=== PATIENT | male | born 1940 | race Caucasian/White ===

== ENCOUNTER 2016-08-28 09:00 | Outpatient (CLI) | payer MEDICARE, OTHER | END 2016-08-28 09:01 | disposition home or self-care (01) | DX: I10 Essential (primary) hypertension (principal); E78.00 Pure hypercholesterolemia, unspecified; E55.9 Vitamin D deficiency, unspecified; Z12.5 Encounter for screening for malignant neoplasm of prostate; E03.9 Hypothyroidism, unspecified | CPT/HCPCS: 36415; 80053; 80061; 82306; 84443; G0103 ==

== ENCOUNTER 2016-11-01 16:12 | Outpatient (CLI) | payer MEDICARE, OTHER ==
--- NOTE | 2016-11-03 13:58 | CT Report ---
EXAM: CT LUMBAR SPINE WITHOUT CONTRAST EXAM DATE: 11/01/2016 05:08 PM. CLINICAL HISTORY: Chronic lumbar pain and stenosis. COMPARISONS: Lumbar spine plain films 12/18/2015. TECHNIQUE: Thin-section axial images were acquired of the lumbar spine from T12 to S1 without contras t. Post-processing: Coronal and sagittal reformats. Other: None. In accordance with CT protocol optimization, one or more of the following dose reduction techniques w ere utilized for this exam: automated exposure control, adjustment of mA and/or KV based on patient s ize, or use of iterative reconstructive technique. FINDINGS: Alignment: Minimal levorotatory curvature of the lumbar spine is seen. Mild, 3 mm, retrolisthesis is seen at L1-L2. Minimal, 2 mm, retrolisthesis is seen at L2-L3. Bones: Five [id number]-[id number] lumbar vertebral bodies are present. No fractures or bone lesions. Disk Levels/Facets: T12-L1: Unremarkable. L1-L2: Mild retrolisthesis. Minimal circumferential disk bulge is seen. Effacement of the thecal sac is noted. Mild central canal stenosis. L2-L3: Minimal retrolisthesis. Minimal circumferential disk bulge. No stenosis. L3-L4: Mild degenerative facet change. Minimal loss of disk space height. Minimal circumferential dis k bulge. Effacement of the thecal sac. Mild canal stenosis. L4-L5: Moderate hypertrophic and erosive degenerative facet change is seen. Minimal circumferential d isk bulge is noted. Effacement of the thecal sac is noted. Moderate canal stenosis. L5-S1: Mild degenerative facet change. Moderate loss of disk space height. Vacuum cleft phenomenon. M ild circumferential disk bulge is seen. Patchy anterior and lateral osteophyte formation is seen. No stenosis. Musculature: Normal. No fatty atrophy. Other: Mild vascular calcification is seen involving aorta and iliac arteries. IMPRESSION: 1. Mild spondylosis throughout the lumbar spine, as noted above. 2. L1-L2: Mild spondylotic retrolisthesis. Mild canal stenosis. 3. L3-L4: Mild degenerative disk and facet change. Mild canal stenosis. 4. L4-L5: Moderate hypertrophic degenerative facet change. Mild degenerative disk change. Moderate ca nal stenosis. [facility] Referring Provider Line: [phone] SITE ID: [id number]
== END 2016-11-01 16:13 | disposition home or self-care (01) ==
LOC: DI 16:12
PROVIDERS: ATTEND Orthopaedic Surgery
DX: M47.896 Other spondylosis, lumbar region (principal); M51.36 Other intervertebral disc degeneration, lumbar region; M43.16 Spondylolisthesis, lumbar region
CPT/HCPCS: 72131

== ENCOUNTER 2016-11-26 09:55 | Day surgery (SDC) | payer MEDICARE, OTHER ==
[2016-11-26] MEDS ORDERED: LACTATED RINGERS 1,000 ML IV ONE (10:24)
[2016-11-26] MEDS ORDERED: BUPIVACAINE 0.25% PF 30 ML VIAL SUBQ ONE ×2 (10:43)
[2016-11-26] MEDS ORDERED: LIDOCAINE 1%-EPI 1:100000 30 ML MDV SUBQ ONE ×2 (10:43)
[2016-11-26] MEDS ORDERED: LIDOCAINE-MPF 2% 5 ML VIAL IM ONE (11:00)
[2016-11-26] MEDS ORDERED: PROPOFOL 200 MG/20 ML VIAL IVP ONE (11:00)
[2016-11-26] MEDS ORDERED: MIDAZOLAM 2 MG/2 ML VIAL IVP ONE (11:00)
[2016-11-26] MEDS ORDERED: fentaNYL 100 MCG/2 ML VIAL IVP ONE (11:00)
[2016-11-26 12:02] VITALS: BP 115/68
--- NOTE | 2016-11-28 12:41 | OPERATIVE REPORT ---
DATE OF SURGERY: 11/26/2016 00:00:00 PREOPERATIVE DIAGNOSIS: Left carpal tunnel syndrome. POSTOPERATIVE DIAGNOSIS: Left carpal tunnel syndrome. NAME OF PROCEDURE: Left carpal tunnel release. SURGEON: Kortney Middleton MD ANESTHESIA: Local MAC, Jeffry Pandya. INDICATIONS FOR SURGERY: The patient is a 76-year-old male with progressive carpal tunnel syndrome sy mptoms in his left hand with failure to respond to conservative treatment, and recommendation made fo r carpal tunnel release. DESCRIPTION OF PROCEDURE: Patient was taken to the operating room, he was given a light sedative IV a nd after an adequate surgical timeout and prep and drape, he was given a carpal tunnel block utilizin g 5 mL of 1% lidocaine and 4 mL of 0.25% Marcaine with epi. After an approximately 5 minute delay to allow epi effect, the patient's carpal tunnel release was performed through a longitudinal incision i n the palm approximately 1 inch in length, in line with the third web. This was taken through skin an d subcutaneous tissue, defining the extent of the carpal tunnel and the transverse carpal ligament wa s divided. This release carried distal to the level of the transverse superficial arch, and it was ca rried proximal to the distal wrist flexion crease. This adequately decompressed a carpal tunnel that was very tight, but did not show any other abnormality. The area was irrigated and closed with 4-0 ny shira interrupted. Sterile dressings were applied. The patient was placed in a soft dressing and taken to the recovery room in stable condition. ESTIMATED BLOOD LOSS: Minimal. COMPLICATIONS: None. SPONGE AND NEEDLE COUNTS: Correct. JOB #: [id number] EXT JOB #:[id number]
== END 2016-11-26 09:56 | disposition home or self-care (01) ==
LOC: SDS 09:55
PROVIDERS: ATTEND Orthopaedic Surgery
PROC: 01N50ZZ Release Median Nerve, Open Approach (ICD-10-PCS; principal; 2016-11-26 11:00)
DX: G56.02 Carpal tunnel syndrome, left upper limb (principal); M51.36 Other intervertebral disc degeneration, lumbar region; M48.06 Spinal stenosis, lumbar region; E03.9 Hypothyroidism, unspecified; R12 Heartburn; Z95.0 Presence of cardiac pacemaker; Z87.891 Personal history of nicotine dependence; Z79.82 Long term (current) use of aspirin
CPT/HCPCS: 64721; J7120

== ENCOUNTER 2017-05-14 14:48 | Outpatient (CLI) | payer MEDICARE, OTHER ==
--- NOTE | 2017-05-15 11:51 | XRAY Report ---
DATE OF SERVICE: 05/14/2017 LEFT FOOT: 05/14/2017 COMPARISON: None. INDICATION: Pain and edema subjacent to the second metatarsal, left foot. TECHNIQUE: Three views of the left foot. FINDINGS: There is mild osteoarthritis of the first metatarsophalangeal joint. Normal alignment. No evidence of acute fracture. No gross soft tissue abnormality, apart from bunion. IMPRESSION: BUNION AND MILD 1ST MTP OSTEOARTHRITIS. NO ACUTE FINDINGS. TD: 05/14/2017 18:18 MTDD
== END 2017-05-14 14:49 | disposition home or self-care (01) ==
LOC: DI 14:48
PROVIDERS: ATTEND Podiatrist
DX: M19.072 Primary osteoarthritis, left ankle and foot (principal); M21.612 Bunion of left foot

== ENCOUNTER 2017-06-10 15:30 | Outpatient (CLI) | payer MEDICARE, OTHER | END 2017-06-10 15:31 | disposition home or self-care (01) | LOC: LAB.R 15:30 | PROVIDERS: ATTEND Family Medicine | DX: Z00.00 Encounter for general adult medical examination without abnormal findings (principal) | CPT/HCPCS: 87640 ==

== ENCOUNTER 2017-06-11 07:55 | Outpatient (CLI) | payer MEDICARE, OTHER ==
[2017-06-11 13:20] LABS: BASOPHILS # (AUTO) 0.1 10^3/uL (0.0-0.1); BASOPHILS % (AUTO) 1.2 %; EOSINOPHILS # (AUTO) 0.2 10^3/uL (0.0-0.7); EOSINOPHILS % (AUTO) 3.5 %; HGB - HEMOGLOBIN 11.9 g/dL (14.0-18.0); LYMPHOCYTES # (AUTO) 0.9 10^3/uL (1.5-3.5); LYMPHOCYTES % (AUTO) 16.2 %; MEAN CORPUSCULAR HEMOGLOBIN 32.6 pg (27.0-31.0); MEAN CORPUSCULAR VOLUME 90.4 fL (80.0-94.0); MEAN PLATELET VOLUME 7.4 fL (7.4-11.4); MONOCYTES # (AUTO) 0.4 10^3/uL (0.0-1.0); MONOCYTES % (AUTO) 6.6 %; NEUTROPHILS % (AUTO) 72.5 %; PLT - PLATELET COUNT 184 10^3/uL (130-450); RED BLOOD COUNT 3.65 10^6/uL (4.70-6.10); RED CELL DISTRIBUTION WIDTH 13.7 % (12.0-15.0); WHITE BLOOD COUNT 5.5 x10^3/uL (4.8-10.8)
[2017-06-11 13:32] LABS: ALBUMIN 4.3 g/dL (3.2-5.5); ALBUMIN/GLOBULIN RATIO 1.5 (1.0-2.2); BILIRUBIN,TOTAL 0.4 mg/dL (0.2-1.0); CALCIUM 9.3 mg/dL (8.5-10.3); CREATININE 1.3 mg/dL (0.6-1.2); TOTAL PROTEIN 7.2 g/dL (6.7-8.2)
== END 2017-06-11 07:56 | disposition home or self-care (01) ==
LOC: LAB.WCP 07:55
PROVIDERS: ATTEND Family Medicine
DX: Z00.00 Encounter for general adult medical examination without abnormal findings (principal); E78.5 Hyperlipidemia, unspecified; I10 Essential (primary) hypertension; E55.9 Vitamin D deficiency, unspecified; E03.9 Hypothyroidism, unspecified
CPT/HCPCS: 36415; 80053; 82306; 84443; 85025

== ENCOUNTER 2017-06-12 10:46 | Outpatient (CLI) | payer MEDICARE, OTHER ==
[2017-06-12 18:54] LABS: BASOPHILS # (AUTO) 0.1 10^3/uL (0.0-0.1); EOSINOPHILS # (AUTO) 0.2 10^3/uL (0.0-0.7); EOSINOPHILS % (AUTO) 2.9 %; HGB - HEMOGLOBIN 11.6 g/dL (14.0-18.0); LYMPHOCYTES # (AUTO) 0.9 10^3/uL (1.5-3.5); MEAN CORPUSCULAR HEMOGLOBIN 31.8 pg (27.0-31.0); MEAN CORPUSCULAR HGB CONC 33.6 g/dL (32.0-36.0); MEAN CORPUSCULAR VOLUME 94.7 fL (80.0-94.0); MEAN PLATELET VOLUME 7.9 fL (7.4-11.4); MONOCYTES # (AUTO) 0.4 10^3/uL (0.0-1.0); MONOCYTES % (AUTO) 7.1 %; NEUTROPHILS # (AUTO) 4.1 10^3/uL (1.5-6.6); PLT - PLATELET COUNT 204 10^3/uL (130-450); RED BLOOD COUNT 3.64 10^6/uL (4.70-6.10); RED CELL DISTRIBUTION WIDTH 13.9 % (12.0-15.0); WHITE BLOOD COUNT 5.6 x10^3/uL (4.8-10.8)
[2017-06-12 20:00] LABS: % IRON SATURATION 15 % (20-50); IRON 63 ug/dL (45-182); TOTAL IRON BINDING CAPACITY 409 ug/dL (250-450); TRANSFERRIN 292 mg/dL (180-329)
[2017-06-12 20:29] LABS: FERRITIN 13.1 ng/mL (23.9-336.2)
== END 2017-06-12 10:47 | disposition home or self-care (01) ==
LOC: LAB.WCP 10:46
PROVIDERS: ATTEND Family Medicine
DX: D64.9 Anemia, unspecified (principal)
CPT/HCPCS: 36415; 82607; 82728; 83540; 84466; 85025

== ENCOUNTER 2017-07-07 10:16 | Outpatient (CLI) | payer MEDICARE, OTHER | END 2017-07-07 10:17 | disposition home or self-care (01) | LOC: LAB 10:16 | PROVIDERS: ATTEND Orthopaedic Surgery | DX: Z01.812 Encounter for preprocedural laboratory examination (principal); M17.11 Unilateral primary osteoarthritis, right knee | CPT/HCPCS: 36415; 86850; 86900; 86901 ==

== ENCOUNTER 2017-07-08 02:30 | Inpatient (IN) | payer MEDICARE, OTHER ==
[2017-07-08] MEDS ORDERED: ceFAZolin 2 GM/50 ML 2 GM/50 ML BAG IV ONE (06:31)
[2017-07-08] MEDS ORDERED: CELECOXIB 100 MG CAPSULE PO ONE (06:32)
[2017-07-08] MEDS ORDERED: ACETAMINOPHEN 1,000 MG/100 ML 100 ML IV ONE ×2 (06:34→09:01)
[2017-07-08] MEDS ORDERED: ROPIVACAINE 0.5% PF 20 ML AMPULE ONE (07:05)
[2017-07-08] MEDS ORDERED: LACTATED RINGERS 1,000 ML IV ONE ×2 (07:07→08:35)
[2017-07-08] MEDS ORDERED: KETOROLAC 30 MG/ML VIAL IVP ONE (08:15)
[2017-07-08] MEDS ORDERED: MORPHINE PF 10 MG/10 ML AMP SUBQ ONE (08:15)
[2017-07-08] MEDS ORDERED: EPINEPHrine 1 MG/ML AMP IVP ONE (08:15)
[2017-07-08] MEDS ORDERED: ROPIVACAINE 0.5% PF 20 ML AMPULE SUBQ ONE (08:15)
[2017-07-08] MEDS ORDERED: PROPOFOL 200 MG/20 ML VIAL IVP ONE (09:01)
[2017-07-08] MEDS ORDERED: ePHEDrine 50 MG/ML VIAL IVP ONE (09:01)
[2017-07-08] MEDS ORDERED: TRANEXAMIC ACID 1,000 MG/10 ML VIAL IV ONE (09:01)
[2017-07-08] MEDS ORDERED: GLYCOPYRROLATE 1 MG/5 ML VIAL IVP ONE (09:01)
[2017-07-08] MEDS ORDERED: MORPHINE PF 5 MG/10 ML AMP EP ONE (09:01)
--- NOTE | 2017-07-08 09:55 | OPERATIVE REPORT ---
Operative Report - General Admit Date: 07/08/17 Procedure Date: 07/08/17 Planned Procedure: right Total knee arthroplasty Pre-Op Diagnosis: DJD right knee Procedure Performed: Right TKA Post Op Diagnosis: same - Procedure Note Primary Surgeon: melissa Anesthesia Provider: Anesthesia Technique: Combo spinal/epidural Estimated Blood Loss (mL): 150
[2017-07-08] MEDS ORDERED: ACETAMINOPHEN 325 MG TABLET PO PRN (09:56)
[2017-07-08] MEDS ORDERED: SODIUM CHLORIDE FLUSH 0.9% 10 ML SYRINGE IVP PRN (09:56)
[2017-07-08] MEDS ORDERED: PROCHLORPERAZINE 10 MG/2 ML VIAL IVP PRN (09:56)
[2017-07-08] MEDS ORDERED: ACETAMINOPHEN 1,000 MG/100 ML 100 ML IV PRN (09:56)
[2017-07-08] MEDS ORDERED: BISACODYL 10 MG SUPP PR PRN (09:56)
--- NOTE | 2017-07-08 10:58 | OPERATIVE REPORT ---
DATE OF SERVICE: Physician: Kortney Middleton MD DATE OF PROCEDURE: 07/08/2017 PREOPERATIVE DIAGNOSIS: Right knee osteoarthritis. POSTOPERATIVE DIAGNOSIS: Right knee osteoarthritis. PROCEDURE PERFORMED: Right total knee replacement arthroplasty. OPERATING SURGEON: Kortney Middleton MD ANESTHESIA: Spinal. INDICATIONS FOR SURGERY: The patient is a 76-year-old male with progressive severe osteoarthritis of his knee who desires surgical treatment with total knee arthroplasty. The patient has failed nonoperative care and has significant functional limitations and pain. FINDINGS AT SURGERY: The patient's evaluation under anesthesia revealed the patient to have range of motion 0-110 with crepitus about the knee and effusion, but normal ligament stability. At open arthrotomy, the patient had significant pale and clear yellow synovial fluid. He had significant and severe osteoarthritis changes with [id number] articulation in the medial aspect of the patellofemoral joint and the lateral aspect, preserved articular cartilage in the lateral compartment of the knee, but more severely worn medial. The patient had a very large loose body in the posteromedial part of the knee adherent somewhat in the synovium posterior to the tibial plateau. DESCRIPTION OF OPERATIVE PROCEDURE: The patient was taken to the operating room. He was given a spinal anesthetic. He was then positioned supine. He was given IV antibiotics and tranexamic acid injections. A tourniquet was placed on his thigh and a Cole catheter placed. He was sterilely prepped and draped in standard fashion. After surgical timeout, the patient's limb was exsanguinated and the tourniquet inflated to 300 mmHg. A marking pen was used to plan a curved medial incision approximately 8 inches in length, which was then made through skin and through subcutaneous tissue down to the extensor expansion and the medial retinaculum incision was continued through the medial retinaculum, exposing the intraarticular aspect of the knee, using a suction to remove the large amount of effusion. The patient's patella was able to be everted and displaced laterally. The knee was then flexed. In flexion, a rongeur was used to remove osteophytes from around the distal femur and around the patella. A #15 blade knife and pickups were used to excise the menisci, medial and lateral, and to excise the remnants of the anterior cruciate ligament. Initially, the PCL left intact. The distal femur drill was used into the medullary canal, after which, the distal femoral cutting block was applied and the distal femoral cut made with a saw. Sizing was initially to a size 10, and initial application of the cutting block suggested that this would not be an adequate resection and that downsizing was undertaken, repositioning the distal femur holes and then placing a 9 block and making all the 4-in-1 cuts on the femur and this was very adequate and properly sized for a standard size 9 femur. Excess bone and spurs were removed. Retractors were repositioned around the tibia with anterior subluxation of the tibia. The remaining medial and lateral menisci remnants were removed. The tibial external cutting jig was applied. Reference for rotation slope and alignment, and the cutting block applied to the tibia. The tibia was then cut in standard fashion and the tibial resection excised. This had somewhat destabilized the PCL so the PCL remnant was removed. The sizing of the femur occurred to a size F, and the block applied for drilling and broaching for a stem. With the femur then positioned and cycled through range of motion, the distal femoral drill holes were made and the trial reduction performed with sequential poly inserts up to size 16, which stabilized the knee, did not give extrusion, gave full range of motion. With these trial implants left in place, the patella was prepared by excision of an overall size of 20 down to 14, which allowed a replacement of a size 8 poly medialized 32 and this was prepared and adequately seated. The trial components were then all removed. The knee was flushed and irrigated and the implantables brought into the field. Injection was placed in and around the knee with local and Toradol medication, followed by sequential cementing of the tibial baseplate with insertion of 16 mm medial congruent poly followed by the size 9 femur and the size 32 patella. All excess cement was removed and the knee was flushed thoroughly as the cement hardened. Cycling of the knee was excellent with no patellar subluxation and excellent tracking. The knee was given a bath of dilute iodine solution, which was then irrigated and lavaged out of the knee at the conclusion followed by deflation of the tourniquet, cautery control of bleeding, and then a meticulous closure of the capsule with #2 FiberWire, a subcutaneous 0 and 2-0 Vicryl closure and a subcuticular 4-0 Monocryl closure. Sterile dressings were applied. The patient was placed in a soft wrap and taken to the recovery room in stable condition. ESTIMATED BLOOD LOSS: 150 mL. COMPLICATIONS: None. COUNTS: Sponge and needle counts were correct. TD: 07/08/2017 10:56
[2017-07-08] MEDS: SODIUM CHLORIDE 0.45% 1,000 ML IV SCH ×2 (11:01→20:29)
[2017-07-08] MEDS: HYDROmorphone 1 MG/ML SYRINGE IVP PRN ×2 (11:52→16:00)
--- NOTE | 2017-07-08 13:18 | XRAY Report ---
TWO VIEW RIGHT KNEE: 07/08/2017 CLINICAL INDICATION: Postop. FINDINGS: Frontal and lateral views of the right knee demonstrate a right knee replacement in place. Subcutaneous gas is seen. No fracture or hardware complication is appreciated. IMPRESSION: EXPECTED POSTOPERATIVE APPEARANCE OF RIGHT KNEE REPLACEMENT. TD: 07/08/2017 13:17
[2017-07-08] MEDS: ceFAZolin 2 GM/50 ML 2 GM/50 ML BAG IV SCH (16:07)
[2017-07-08] MEDS: SODIUM CHLORIDE FLUSH 0.9% 10 ML SYRINGE IVP SCH (16:09)
[2017-07-08] MEDS: oxyCOD/ACETAMIN 5 MG/325 MG TABLET PO PRN ×2 (17:16→20:29)
[2017-07-08] MEDS: PRAMIPEXOLE 0.25 MG TABLET PO SCH (17:51)
[2017-07-08] MEDS ORDERED: PRAMIPEXOLE 0.25 MG TABLET PO SCH (21:00)
[2017-07-09] MEDS: oxyCOD/ACETAMIN 5 MG/325 MG TABLET PO PRN ×4 (00:11→21:24)
[2017-07-09] MEDS: HYDROmorphone 1 MG/ML SYRINGE IVP PRN ×3 (00:12→16:33)
[2017-07-09] MEDS: ONDANSETRON 4 MG/2 ML VIAL IVP PRN ×2 (00:15→10:55)
[2017-07-09] MEDS: ceFAZolin 2 GM/50 ML 2 GM/50 ML BAG IV SCH (00:22)
[2017-07-09] MEDS: SODIUM CHLORIDE FLUSH 0.9% 10 ML SYRINGE IVP SCH ×3 (00:25→16:21)
[2017-07-09 05:54] LABS: BASOPHILS % (AUTO) 0.3 %; EOSINOPHILS # (AUTO) 0.1 10^3/uL (0.0-0.7); EOSINOPHILS % (AUTO) 1.4 %; HGB - HEMOGLOBIN 10.5 g/dL (14.0-18.0); LYMPHOCYTES # (AUTO) 0.6 10^3/uL (1.5-3.5); LYMPHOCYTES % (AUTO) 9.4 %; MEAN CORPUSCULAR HGB CONC 33.7 g/dL (32.0-36.0); MEAN CORPUSCULAR VOLUME 94.8 fL (80.0-94.0); MEAN PLATELET VOLUME 7.5 fL (7.4-11.4); MONOCYTES # (AUTO) 0.5 10^3/uL (0.0-1.0); MONOCYTES % (AUTO) 7.4 %; NEUTROPHILS # (AUTO) 5.1 10^3/uL (1.5-6.6); NEUTROPHILS % (AUTO) 81.5 %; PLT - PLATELET COUNT 172 10^3/uL (130-450); RED BLOOD COUNT 3.28 10^6/uL (4.70-6.10); RED CELL DISTRIBUTION WIDTH 15.3 % (12.0-15.0); WHITE BLOOD COUNT 6.2 x10^3/uL (4.8-10.8)
[2017-07-09 05:56] LABS: CALCIUM 8.7 mg/dL (8.5-10.3); CREATININE 1.5 mg/dL (0.6-1.2)
[2017-07-09] MEDS: LEVOTHYROXINE 25 MCG TABLET PO SCH (07:09)
[2017-07-09] MEDS: PANTOPRAZOLE 40 MG TABLET PO SCH (07:09)
[2017-07-09] MEDS: SODIUM CHLORIDE 0.45% 1,000 ML IV SCH (07:39)
[2017-07-09] MEDS: LOSARTAN 50 MG TABLET PO SCH (08:45)
[2017-07-09] MEDS: PRAMIPEXOLE 0.25 MG TABLET PO SCH ×2 (08:45→16:21)
[2017-07-09] MEDS: FELODIPINE ER 2.5 MG TABLET PO SCH (08:45)
[2017-07-09] MEDS: SERTRALINE 50 MG TABLET PO SCH (08:47)
--- NOTE | 2017-07-09 13:00 | PROVIDER PROGRESS NOTE ---
Subjective - General Admit Date: 07/08/17 Procedure Date: 07/08/17 Post Op Days: 1 Procedure Performed: right TKA - Review of Systems Wound/Incisions: positive: Healing well Musculoskeletal: positive: Joint pain Objective - Patient Data Reviewed Vital Signs: Yes Vital Signs: Vital Signs x48h Temp Pulse Resp BP Pulse Ox 07/09/17 12:41 36.8 C 60 20 110/88 H 96 07/09/17 07:35 36.9 C 54 L 18 126/66 100 Weight: Weight 07/07/17 07/08/17 07/09/17 23:59 23:59 23:59 Weight (kg) 90.2 kg Intake & Output: Intake and Output Totals x24h 07/07/17 07/08/17 07/09/17 23:59 23:59 23:59 Intake Total 6250.442 9820.000 Output Total 575 1750 Balance 1081.667 470.000 - Lab Results Lab Results: 07/09/17 05:28 07/09/17 05:28 Other Lab Results: Lab Results x24hrs 07/09/17 07/09/17 Range/Units 05:28 05:28 WBC 6.2 (4.8-10.8) x10^3/uL RBC 3.28 L (4.70-6.10) 10^6/uL Hgb 10.5 L (14.0-18.0) g/dL Hct 31.1 L (42.0-52.0) % MCV 94.8 H (80.0-94.0) fL MCH 32.0 H (27.0-31.0) pg MCHC 33.7 (32.0-36.0) g/dL RDW 15.3 H (12.0-15.0) % Plt Count 172 (130-450) 10^3/uL MPV 7.5 (7.4-11.4) fL Neut # 5.1 (1.5-6.6) 10^3/uL Lymph # 0.6 L (1.5-3.5) 10^3/uL [place] # 0.5 (0.0-1.0) 10^3/uL Eos # 0.1 (0.0-0.7) 10^3/uL Baso # 0.0 (0.0-0.1) 10^3/uL Absolute Nucleated RBC 0.00 x10^3/uL Nucleated RBC % 0.1 /100WBC Sodium 135 (135-145) mmol/L Potassium 4.7 (3.5-5.0) mmol/L Chloride 101 (101-111) mmol/L Carbon Dioxide 26 (21-32) mmol/L Anion Gap 8.0 (6-13) BUN 34 H (6-20) mg/dL Creatinine 1.5 H (0.6-1.2) mg/dL Estimated GFR (MDRD) 45 L (>89) Glucose 125 H (70-100) mg/dL Calcium 8.7 (8.5-10.3) mg/dL - Imaging Results Radiology Imaging: positive: EMP read indepedently - Current Medications Current Medications: Current Medications Generic Name Dose Route Start Last Admin Trade Name Freq PRN Reason Stop Dose Admin Felodipine 10 mg 07/09/17 09:00 07/09/17 08:45 Plendil PO 10 mg DAILY GEMMA Administration Hydromorphone HCl 0.5 mg 07/08/17 09:56 07/09/17 10:55 Dilaudid Inj Syringe IVP 0.5 mg Q2H PRN Administration PAIN Levothyroxine Sodium 50 mcg 07/09/17 07:00 07/09/17 07:09 Synthroid PO 50 mcg QDAC GEMMA Administration Losartan Potassium 100 mg 07/09/17 09:00 07/09/17 08:45 Cozaar PO 100 mg DAILY GEMMA Administration Ondansetron HCl 4 mg 07/08/17 09:56 07/09/17 00:15 Zofran Inj IVP 4 mg Q6HR PRN Administration Nausea / Vomiting Oxycodone/Acetaminophen 1 tab 07/08/17 09:56 07/09/17 07:13 Percocet 5 Mg/325 Mg PO 1 tab Q4HR PRN Administration PAIN Pantoprazole Sodium 40 mg 07/09/17 07:00 07/09/17 07:09 Protonix PO 40 mg QDAC GEMMA Administration Pramipexole Dihydrochloride 0.5 mg 07/09/17 08:00 07/09/17 08:45 Mirapex PO 0.5 mg QDBREAKFAST GEMMA Administration Pramipexole Dihydrochloride 1 mg 07/08/17 18:00 07/08/17 17:51 Mirapex PO 1 mg 1730 GEMMA Administration Sertraline HCl 50 mg 07/09/17 09:00 07/09/17 08:47 Zoloft PO 50 mg DAILY GEMMA Administration Sodium Chloride 10 ml 07/08/17 17:00 07/09/17 08:46 Normal Saline Flush 0.9% IVP Not Given 0100,0900,1700 GEMMA - Physical Exam Wound/Incisions: positive: Healing well General Appearance: positive: No acute distress Skin: positive: Warm Extremities: positive: Joint swelling Neurologic/Psychiatric: positive: Motor nml, Sensation nml, Mood/affect nml Impression/Plan - Problem List Problem List: POD #1: Pt is having more pain this AM.\ Hct is stable. rec continue PT and mobilization. start ASA.
[2017-07-09] MEDS: ASPIRIN EC 325 MG TABLET PO SCH ×2 (14:01→21:24)
[2017-07-09] MEDS: SENNA 8.6 MG TABLET PO PRN (17:16)
[2017-07-09] MEDS ORDERED: risperiDONE 1 MG TABLET PO ONE (19:54)
[2017-07-10] MEDS: oxyCOD/ACETAMIN 5 MG/325 MG TABLET PO PRN ×3 (02:18→11:09)
[2017-07-10] MEDS: SODIUM CHLORIDE FLUSH 0.9% 10 ML SYRINGE IVP SCH ×3 (02:19→19:08)
[2017-07-10] MEDS: LEVOTHYROXINE 25 MCG TABLET PO SCH (06:42)
[2017-07-10] MEDS: PANTOPRAZOLE 40 MG TABLET PO SCH (06:42)
--- NOTE | 2017-07-10 07:18 | PROVIDER PROGRESS NOTE ---
Subjective - General Admit Date: 07/08/17 Procedure Date: 07/08/17 Post Op Days: 2 Procedure Performed: right TKA - Review of Systems Wound/Incisions: positive: Healing well Musculoskeletal: positive: Joint pain Objective - Patient Data Reviewed Vital Signs: Yes Vital Signs: Vital Signs x48h Temp Pulse Resp BP Pulse Ox 07/10/17 02:39 37.5 C 58 L 16 138/66 H 97 Weight: Weight 07/08/17 07/09/17 07/10/17 23:59 23:59 23:59 Weight (kg) 90.2 kg Intake & Output: Intake and Output Totals x24h 07/08/17 07/09/17 07/10/17 23:59 23:59 23:59 Intake Total 3177.604 8869.000 Output Total 575 3725 1375 Balance 1081.667 195.000 -1375 - Lab Results Lab Results: 07/09/17 05:28 07/09/17 05:28 - Current Medications Current Medications: Current Medications Generic Name Dose Route Start Last Admin Trade Name Freq PRN Reason Stop Dose Admin Acetaminophen 650 - 975 mg 07/08/17 09:56 07/10/17 05:38 Tylenol PO 650 mg Q4HR PRN Administration PAIN Aspirin 325 mg 07/09/17 13:00 07/09/17 21:24 Ecotrin PO 325 mg BID GEMMA Administration Felodipine 10 mg 07/09/17 09:00 07/09/17 08:45 Plendil PO 10 mg DAILY GEMMA Administration Hydromorphone HCl 0.5 mg 07/08/17 09:56 07/09/17 16:33 Dilaudid Inj Syringe IVP 0.5 mg Q2H PRN Administration PAIN Levothyroxine Sodium 50 mcg 07/09/17 07:00 07/10/17 06:42 Synthroid PO 50 mcg QDAC GEMMA Administration Losartan Potassium 100 mg 07/09/17 09:00 07/09/17 08:45 Cozaar PO 100 mg DAILY GEMMA Administration Ondansetron HCl 4 mg 07/08/17 09:56 07/09/17 00:15 Zofran Inj IVP 4 mg Q6HR PRN Administration Nausea / Vomiting Oxycodone/Acetaminophen 1 tab 07/08/17 09:56 07/10/17 06:42 Percocet 5 Mg/325 Mg PO 1 tab Q4HR PRN Administration PAIN Pantoprazole Sodium 40 mg 07/09/17 07:00 07/10/17 06:42 Protonix PO 40 mg QDAC GEMMA Administration Pramipexole Dihydrochloride 0.5 mg 07/09/17 08:00 07/09/17 08:45 Mirapex PO 0.5 mg QDBREAKFAST GEMMA Administration Pramipexole Dihydrochloride 1 mg 07/08/17 18:00 07/09/17 16:21 Mirapex PO 1 mg 1730 GEMMA Administration Senna 17.2 mg 07/08/17 09:56 07/09/17 17:16 Senokot PO 17.2 mg Q12H PRN Administration Constipation Sertraline HCl 50 mg 07/09/17 09:00 07/09/17 08:47 Zoloft PO 50 mg DAILY GEMMA Administration Sodium Chloride 10 ml 07/08/17 17:00 07/10/17 02:19 Normal Saline Flush 0.9% IVP 10 ml 0100,0900,1700 GEMMA Administration - Physical Exam Wound/Incisions: positive: Dressing dry and intact General Appearance: positive: No acute distress Skin: positive: No rash, Warm, Dry Extremities: positive: Joint swelling Neurologic/Psychiatric: positive: Motor nml, Sensation nml, Mood/affect nml Impression/Plan - Problem List Problem List: POD #2. Pt is progressing in routine fashion. HE will again participate in PT and gain mobility dressing change and hct check in am prior to planned discharge.
[2017-07-10] MEDS: LOSARTAN 50 MG TABLET PO SCH (08:05)
[2017-07-10] MEDS: ASPIRIN EC 325 MG TABLET PO SCH ×2 (08:06→20:29)
[2017-07-10] MEDS: FELODIPINE ER 2.5 MG TABLET PO SCH (08:06)
[2017-07-10] MEDS: PRAMIPEXOLE 0.25 MG TABLET PO SCH ×2 (08:06→19:08)
[2017-07-10] MEDS: SERTRALINE 50 MG TABLET PO SCH (08:06)
[2017-07-10] MEDS: SENNA 8.6 MG TABLET PO PRN (14:55)
[2017-07-10] MEDS ORDERED: DOCUSATE SODIUM 250 MG CAPSULE PO SCH (15:00)
--- NOTE | 2017-07-10 16:58 | Discharge Plan ---
Discharge Plan Disposition: Home, Self Care Condition: Good Prescriptions: oxyCODONE/ACET 5/325 [Percocet 5 mg/325 mg] 1 tab PO Q4HR PRN #30 tablet PRN Reason: Pain Aspirin EC [Ecotrin] 325 mg PO BID #60 tablet Senna [Senokot] 17.2 mg PO Q12H PRN #20 tablet PRN Reason: Constipation Diet: Regular Activity Restrictions: Wt Bearing as Tolerated Shower Restrictions: Yes (wound covered) Driving Restrictions: Yes (no drive) Assistance Devices: Walker Weight Bearing: Full Weight No Smoking: If you smoke, Please STOP! Call for help. Follow-up with: William Juan MD [Primary Care Provider] - Kortney Middleton MD [Provider Admit Priv/Credential] -
[2017-07-11] MEDS: SODIUM CHLORIDE FLUSH 0.9% 10 ML SYRINGE IVP SCH ×2 (01:35→08:53)
[2017-07-11 06:02] LABS: BASOPHILS % (AUTO) 0.7 %; EOSINOPHILS # (AUTO) 0.1 10^3/uL (0.0-0.7); EOSINOPHILS % (AUTO) 2.2 %; HGB - HEMOGLOBIN 9.4 g/dL (14.0-18.0); LYMPHOCYTES # (AUTO) 0.8 10^3/uL (1.5-3.5); LYMPHOCYTES % (AUTO) 12.2 %; MEAN CORPUSCULAR HEMOGLOBIN 31.9 pg (27.0-31.0); MEAN CORPUSCULAR HGB CONC 34.2 g/dL (32.0-36.0); MEAN CORPUSCULAR VOLUME 93.3 fL (80.0-94.0); MEAN PLATELET VOLUME 7.5 fL (7.4-11.4); MONOCYTES # (AUTO) 0.5 10^3/uL (0.0-1.0); MONOCYTES % (AUTO) 7.5 %; NEUTROPHILS # (AUTO) 4.9 10^3/uL (1.5-6.6); NEUTROPHILS % (AUTO) 77.4 %; PLT - PLATELET COUNT 159 10^3/uL (130-450); RED BLOOD COUNT 2.93 10^6/uL (4.70-6.10); RED CELL DISTRIBUTION WIDTH 15.3 % (12.0-15.0); WHITE BLOOD COUNT 6.3 x10^3/uL (4.8-10.8)
[2017-07-11] MEDS: PANTOPRAZOLE 40 MG TABLET PO SCH (06:18)
[2017-07-11] MEDS: oxyCOD/ACETAMIN 5 MG/325 MG TABLET PO PRN (06:19)
[2017-07-11] MEDS: LEVOTHYROXINE 25 MCG TABLET PO SCH (06:19)
[2017-07-11] MEDS: FELODIPINE ER 2.5 MG TABLET PO SCH (08:51)
[2017-07-11] MEDS: PRAMIPEXOLE 0.25 MG TABLET PO SCH (08:51)
[2017-07-11] MEDS: SERTRALINE 50 MG TABLET PO SCH (08:52)
[2017-07-11] MEDS: ASPIRIN EC 325 MG TABLET PO SCH (08:52)
[2017-07-11] MEDS: LOSARTAN 50 MG TABLET PO SCH (08:52)
[2017-07-11 08:54] VITALS: BP 126/90
--- NOTE | 2017-07-16 13:11 | PROVIDER PROGRESS NOTE ---
Subjective - General Admit Date: 07/08/17 Procedure Date: 07/08/17 Post Op Days: 8 Procedure Performed: right TKA - Review of Systems Wound/Incisions: positive: Dressing dry and intact Musculoskeletal: positive: Joint pain Objective - Lab Results Lab Results: 07/11/17 05:51 07/09/17 05:28 Impression/Plan - Problem List Problem List: THIS Patient has an anticipated hospital stay of less than 96 Hours.
--- NOTE | 2017-07-22 20:18 | DISCHARGE SUMMARY ---
Physician: Kortney Middleton MD DATE OF ADMISSION: 07/08/2017 DATE OF DISCHARGE: 07/11/2017 ADMISSION DIAGNOSIS: Right knee osteoarthritis. OPERATIVE PROCEDURE: 07/08/2017, a right total knee replacement arthroplasty. REASON FOR ADMISSION: The patient is a 76-year-old male with progressive, severe osteoarthritis of his right knee who desires total knee arthroplasty. The patient has failed in-office nonoperative management of his knee over an extended period. The patient has functional limitations and chronic knee pain. The patient's history and physical exam are documented in his hospital record. HOSPITAL COURSE: The patient was admitted to the hospital and underwent surgery. In the postoperative period, he was placed on the medical/surgical floor receiving standard postoperative care for a right knee arthroplasty. The patient did well in the postoperative period. He had uneventful management of pain and was very responsive to early therapy, and mobilized out of bed with a walker and utilizing oral pain medication. On 07/11/2017, the patient was discharged to home in the care of his . He was ambulating with a walker. His wound was healing well. He had range of motion of approximately 0 degrees to 90 degrees. PLAN: At discharge was to follow up in the [facility] within a week. He was to use his medications as needed and to be on aspirin 325 mg b.i.d. for deep venous thrombosis prophylaxis. He was given care instructions post total knee arthroplasty. TD: 07/22/2017 20:17
== END 2017-07-11 10:40 | disposition home or self-care (01) | DRG 470 ==
LOC: MS2 06:12
PROVIDERS: ADMIT Orthopaedic Surgery; ATTEND Orthopaedic Surgery
PROC: 0SRC069 Replacement of Right Knee Joint with Oxidized Zirconium on Polyethylene Synthetic Substitute, Cemented, Open Approach (ICD-10-PCS; principal; 2017-07-08 07:30)
DX: M17.11 Unilateral primary osteoarthritis, right knee (principal); I10 Essential (primary) hypertension; E03.9 Hypothyroidism, unspecified; K21.9 Gastro-esophageal reflux disease without esophagitis; G47.30 Sleep apnea, unspecified; E78.5 Hyperlipidemia, unspecified; F32.9 Major depressive disorder, single episode, unspecified; Z79.82 Long term (current) use of aspirin; Z79.899 Other long term (current) drug therapy; Z87.891 Personal history of nicotine dependence
CPT/HCPCS: 36415; 80048; 85014; 85018; 85025

== ENCOUNTER 2017-08-28 12:19 | Outpatient (CLI) | payer MEDICARE, OTHER ==
[2017-08-28 12:43] LABS: BASOPHILS # (AUTO) 0.1 10^3/uL (0.0-0.1); BASOPHILS % (AUTO) 0.8 %; EOSINOPHILS # (AUTO) 0.2 10^3/uL (0.0-0.7); EOSINOPHILS % (AUTO) 2.9 %; HGB - HEMOGLOBIN 12.6 g/dL (14.0-18.0); LYMPHOCYTES # (AUTO) 1.1 10^3/uL (1.5-3.5); LYMPHOCYTES % (AUTO) 13.9 %; MEAN CORPUSCULAR HEMOGLOBIN 32.9 pg (27.0-31.0); MEAN CORPUSCULAR HGB CONC 35.5 g/dL (32.0-36.0); MEAN CORPUSCULAR VOLUME 92.7 fL (80.0-94.0); MEAN PLATELET VOLUME 7.3 fL (7.4-11.4); MONOCYTES # (AUTO) 0.5 10^3/uL (0.0-1.0); MONOCYTES % (AUTO) 6.3 %; NEUTROPHILS # (AUTO) 5.8 10^3/uL (1.5-6.6); NEUTROPHILS % (AUTO) 76.1 %; PLT - PLATELET COUNT 217 10^3/uL (130-450); RED BLOOD COUNT 3.82 10^6/uL (4.70-6.10); RED CELL DISTRIBUTION WIDTH 15.6 % (12.0-15.0); WHITE BLOOD COUNT 7.7 x10^3/uL (4.8-10.8)
[2017-08-28 13:03] LABS: ALBUMIN 4.3 g/dL (3.2-5.5); ALBUMIN/GLOBULIN RATIO 1.5 (1.0-2.2); BILIRUBIN,TOTAL 0.7 mg/dL (0.2-1.0); CALCIUM 9.5 mg/dL (8.5-10.3); CREATININE 1.2 mg/dL (0.6-1.2); TOTAL PROTEIN 7.1 g/dL (6.7-8.2)
== END 2017-08-28 12:20 | disposition home or self-care (01) ==
LOC: LAB 12:19
PROVIDERS: ATTEND Family Medicine
DX: R10.9 Unspecified abdominal pain (principal); D64.9 Anemia, unspecified
CPT/HCPCS: 36415; 80053; 82728; 83540; 84466; 85025

== ENCOUNTER 2017-09-12 07:16 | Outpatient (CLI) | payer MEDICARE, OTHER ==
--- NOTE | 2017-09-12 12:31 | Ultrasound Report ---
ABDOMINAL ULTRASOUND: 09/12/2017 CLINICAL INDICATION: Pain. TECHNIQUE: Real-time scanning was performed with insurance claim representative static images obtained. FINDINGS: The liver measures 15 cm. A 9 mm cyst is incidentally noted. Otherwise, hepatic echotexture is normal. No intrahepatic biliary dilatation is seen. The common bile duct measures 4 mm. The gallbladder is normal, as is the pancreas. The kidneys are normal, with the right measuring 10.5 cm, and the left measuring 12.1 cm. The spleen measures 11.1 cm, and demonstrates normal echotexture. The abdominal aorta is normal in caliber. The inferior vena cava is unremarkable. No free fluid is present. IMPRESSION: INCIDENTAL HEPATIC CYST, STABLE FROM 02/03/2014. NO EVIDENCE OF CHOLELITHIASIS OR BILIARY DILATATION. TD: 09/12/2017 12:31
== END 2017-09-12 07:17 | disposition home or self-care (01) ==
LOC: DI 07:16
PROVIDERS: ATTEND Family Medicine
DX: R10.9 Unspecified abdominal pain (principal); K76.89 Other specified diseases of liver
CPT/HCPCS: 76700

== ENCOUNTER 2017-12-02 10:26 | Outpatient (CLI) | payer MEDICARE, OTHER | END 2017-12-02 10:27 | disposition home or self-care (01) | LOC: SC 10:26 | PROVIDERS: ATTEND Internal Medicine Pulmonary Disease | DX: G47.33 Obstructive sleep apnea (adult) (pediatric) (principal); I10 Essential (primary) hypertension; G25.81 Restless legs syndrome; G47.61 Periodic limb movement disorder | CPT/HCPCS: 99203; G0463; 99212 ==

== ENCOUNTER 2017-12-30 10:28 | Outpatient (CLI) | payer MEDICARE, OTHER ==
[2017-12-30 12:10] LABS: BASOPHILS # (AUTO) 0.1 10^3/uL (0.0-0.1); BASOPHILS % (AUTO) 0.8 %; EOSINOPHILS # (AUTO) 0.3 10^3/uL (0.0-0.7); EOSINOPHILS % (AUTO) 4.1 %; HGB - HEMOGLOBIN 13.9 g/dL (14.0-18.0); LYMPHOCYTES % (AUTO) 14.5 %; MEAN CORPUSCULAR HEMOGLOBIN 34.3 pg (27.0-31.0); MEAN CORPUSCULAR HGB CONC 35.9 g/dL (32.0-36.0); MEAN CORPUSCULAR VOLUME 95.5 fL (80.0-94.0); MEAN PLATELET VOLUME 7.8 fL (7.4-11.4); MONOCYTES # (AUTO) 0.5 10^3/uL (0.0-1.0); NEUTROPHILS # (AUTO) 4.9 10^3/uL (1.5-6.6); NEUTROPHILS % (AUTO) 73.6 %; PLT - PLATELET COUNT 205 10^3/uL (130-450); RED BLOOD COUNT 4.04 10^6/uL (4.70-6.10); RED CELL DISTRIBUTION WIDTH 14.6 % (12.0-15.0); WHITE BLOOD COUNT 6.6 x10^3/uL (4.8-10.8)
[2017-12-30 12:34] LABS: ALBUMIN 4.2 g/dL (3.2-5.5); ALBUMIN/GLOBULIN RATIO 1.5 (1.0-2.2); BILIRUBIN,TOTAL 0.8 mg/dL (0.2-1.0); CALCIUM 9.5 mg/dL (8.5-10.3); CREATININE 1.1 mg/dL (0.6-1.2)
== END 2017-12-30 10:29 | disposition home or self-care (01) ==
LOC: LAB.WCP 10:28
PROVIDERS: ATTEND Family Medicine
DX: K21.9 Gastro-esophageal reflux disease without esophagitis (principal); I10 Essential (primary) hypertension
CPT/HCPCS: 36415; 80053; 85025

== ENCOUNTER 2018-01-15 20:40 | Outpatient (CLI) | payer MEDICARE, OTHER | END 2018-01-15 20:41 | disposition home or self-care (01) | LOC: SC 20:40 | PROVIDERS: ATTEND Internal Medicine Pulmonary Disease | DX: G47.33 Obstructive sleep apnea (adult) (pediatric) (principal); G47.61 Periodic limb movement disorder | CPT/HCPCS: 95810 ==

== ENCOUNTER 2018-02-02 10:15 | Outpatient (CLI) | payer MEDICARE, OTHER | END 2018-02-02 10:16 | disposition home or self-care (01) | LOC: SC 10:15 | PROVIDERS: ATTEND Internal Medicine Pulmonary Disease | DX: G47.33 Obstructive sleep apnea (adult) (pediatric) (principal); G47.61 Periodic limb movement disorder; G25.81 Restless legs syndrome | CPT/HCPCS: 99213; G0463; 99212 ==

== ENCOUNTER 2018-05-20 09:00 | Outpatient (CLI) | payer MEDICARE, OTHER ==
--- NOTE | 2018-05-20 14:29 | XRAY Report ---
Reason: WHEEZING Procedure Date: 05/20/2018 Accession Number: [id number] / [id number] Procedure: XR - Chest 2 View X-Ray CPT Code: 58678 FULL RESULT: EXAM: CHEST RADIOGRAPHY EXAM DATE: 05/20/2018 09:12 AM. CLINICAL HISTORY: Wheezing. COMPARISON: CHEST 2 VIEW PA/LAT 07/08/2016 10:30 AM. TECHNIQUE: 2 views. FINDINGS: Lungs/Pleura: No focal opacities evident. No pleural effusion. No pneumothorax. Normal volumes. Mediastinum: Tortuous aorta and mild cardiomegaly versus prominent left epicardial fat pad, similar to 2017. Other: None. IMPRESSION: Stable examination with no acute cardiopulmonary abnormality. [facility]
== END 2018-05-20 09:01 | disposition home or self-care (01) ==
LOC: DI 09:00
PROVIDERS: ATTEND Internal Medicine
DX: R06.2 Wheezing (principal)
CPT/HCPCS: 71046

== ENCOUNTER 2018-09-19 16:48 | Outpatient (CLI) | payer OTHER, MEDICARE | END 2018-09-19 16:49 | disposition critical access hospital (66) | LOC: EMS 16:48 | PROVIDERS: ATTEND Surgery | DX: S51.811A Laceration without foreign body of right forearm, initial encounter (principal); V49.9XXA Car occupant (driver) (passenger) injured in unspecified traffic accident, initial encounter; Y92.410 Unspecified street and highway as the place of occurrence of the external cause | CPT/HCPCS: A0425; A0429 ==

== ENCOUNTER 2018-09-19 16:55 | Emergency (ER) | payer OTHER, MEDICARE ==
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
[2018-09-19] MEDS ORDERED: BUFFERED LIDOCAINE 10 ML SYRINGE SUBQ STA (17:10)
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
[2018-09-19 19:51] VITALS: BP 143/95
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
== END 2018-09-19 19:52 | disposition home or self-care (01) ==
LOC: EDUNIT# → ED 16:55
DX: S51.821A Laceration with foreign body of right forearm, initial encounter (principal); S51.812A Laceration without foreign body of left forearm, initial encounter; S00.03XA Contusion of scalp, initial encounter; R51 Headache; V47.0XXA Car driver injured in collision with fixed or stationary object in nontraffic accident, initial encounter; Y92.410 Unspecified street and highway as the place of occurrence of the external cause; I10 Essential (primary) hypertension; G47.30 Sleep apnea, unspecified; E03.9 Hypothyroidism, unspecified; K21.9 Gastro-esophageal reflux disease without esophagitis; H91.90 Unspecified hearing loss, unspecified ear; M19.90 Unspecified osteoarthritis, unspecified site; Z79.82 Long term (current) use of aspirin; Z79.891 Long term (current) use of opiate analgesic; Z87.891 Personal history of nicotine dependence
CPT/HCPCS: 12001; 70450; 72125; 99283

== ENCOUNTER 2021-05-28 12:21 | Outpatient (CLI) | payer MEDICARE ==
--- NOTE | 2021-05-28 16:34 | XRAY Report ---
PROCEDURE: Hip w/Pelvis 2-3V RT INDICATIONS: PAIN IN RT HIP TECHNIQUE: AP pelvis with lateral view(s) of the right hip(s). COMPARISON: December 18, 2015 FINDINGS: BONES/JOINTS: No acute, displaced fracture. Prominent osteophyte extending from the superior aspect o f the right femoral head. Moderate joint space narrowing of the right hip with subchondral cystic audrey nge of the femoral head. Slightly mottled appearance of the osseous structures. The left hip joint sp sherice is maintained. No widening of the pubic symphysis. The sacroiliac joints are symmetric. The femoral heads are normal ly seated within the acetabulum. SOFT TISSUES: No focal abnormality. IMPRESSION: 1.At least moderate joint space narrowing and osteophytosis of the right hip. Reviewed by: Keyur Hudson MD on 05/28/2021 4:32 PM PST Approved by: Keyur Hudson MD on 05/28/2021 4:32 PM PST Station ID: [id number]
== END 2021-05-28 12:22 | disposition home or self-care (01) ==
LOC: DI 12:21
PROVIDERS: ATTEND Internal Medicine
DX: M16.11 Unilateral primary osteoarthritis, right hip (principal)

== ENCOUNTER 2021-07-21 14:37 | Emergency (ER) | payer MEDICARE ==
[2021-07-21] MEDS ORDERED: oxyCODONE 5 MG TABLET PO STA ×2 (15:34→17:09)
--- NOTE | 2021-07-21 15:37 | ED Physician Documentation ---
History of Present Illness - Stated complaint Stated Complaint: FALL - Chief complaint Chief Complaint: Trauma Ch/Bk - Additonal information Additional information: 80-year-old male presents emergency department for evaluation of low back pain after a fall from a tripod ladder earlier this afternoon. He reports being on the third rung when the ladder slipped out from under him. He fell directly onto his buttock. He did not strike his head. He is not anticoagulated. Gentleman had difficulty getting up after the fall though his assisted him and he was able to walk to the car and was driven to the hospital. At this time he is complaining of pain in the low back only. He has no saddle anesthesia. He has no paresthesias in his lower extremities. No previous history of back trauma or spinal stabilization. Review of Systems Constitutional: reports: Reviewed and negative Eyes: reports: Reviewed and negative Nose: reports: Reviewed and negative Throat: reports: Reviewed and negative Cardiac: reports: Reviewed and negative Respiratory: reports: Reviewed and negative GI: reports: Reviewed and negative : reports: Reviewed and negative Skin: reports: Reviewed and negative Musculoskeletal: reports: Back pain. denies: Neck pain, Extremity pain, Joint pain, Extremity swelling Neurologic: denies: Generalized weakness, Difficulty speaking, Near syncope, Syncope, Seizure, Confused, Headache PD PAST MEDICAL HISTORY - Past Medical History Cardiovascular: Hypertension Respiratory: Sleep apnea Neuro: None Endocrine/Autoimmune: HyPOthyroidism GI: GERD : Benign prostate hypertrophy HEENT: Chronic hearing loss Psych: None Musculoskeletal: Osteoarthritis Derm: None - Past Surgical History Past Surgical History: Yes General: Appendectomy, Other HEENT: Other - Present Medications Home Medications: Ambulatory Orders Medication Instructions Recorded Confirmed Felodipine [Plendil] 10 mg PO DAILY 09/04/13 07/08/17 Levothyroxine [Synthroid] 50 mcg PO QDAC 09/04/13 07/08/17 Losartan [Cozaar] 100 mg PO DAILY 09/04/13 07/08/17 Pramipexole [Mirapex] 0.5 mg PO QDBREAKFAST 09/04/13 07/08/17 Sertraline [Zoloft] 50 mg PO DAILY 11/19/16 07/08/17 Pramipexole [Mirapex] 1 mg PO HS 07/02/17 07/08/17 Tadalafil [Cialis] 5 mg PO DAILY 07/02/17 07/08/17 Acetaminophen [Tylenol] 650 - 975 mg PO Q4HR PRN tablet 07/10/17 Aspirin EC [Ecotrin] 325 mg PO BID #60 tablet 07/10/17 Pantoprazole [Protonix] 40 mg PO QDAC tablet 07/10/17 Pramipexole [Mirapex] 1 mg PO 1730 tablet 07/10/17 Senna [Senokot] 17.2 mg PO Q12H PRN #20 tablet 07/10/17 oxyCODONE/ACET 5/325 [Percocet 5 1 tab PO Q4HR PRN #30 tablet 07/10/17 mg/325 mg] oxyCODONE [Roxicodone] 5 mg PO TID PRN #20 tablet 07/21/21 polyethylene glycoL 3350 [Miralax] 17 gm PO DAILY PRN #1 bottle 07/21/21 - Allergies Allergies/Adverse Reactions: Allergies Allergy/AdvReac Type Severity Reaction Status Date / Time lisinopril AdvReac Cough Verified 07/21/21 14:46 naproxen AdvReac GI Upset Verified 07/21/21 14:46 - Social History Does the pt smoke?: Yes Smoking Status: Former smoker Does the pt drink ETOH?: Yes Does the pt have substance abuse?: No - Immunizations Immunizations are current?: Yes - POLST Patient has POLST: No POLST Status: Full Code PD ED PE EXPANDED - General General: Alert, No acute distress, Well developed/nourished - HEENT HEENT: Atraumatic, Head injury. No: PERRL - Neck Neck: Supple w/out meningeal sx, No tenderness. No: Adenopathy, Soft tissue TTP, Bony TTP, Limited ROM - Cardiac Cardiac: Regular Rate, Radial strong equal, Pedal strong equal, Cap refill < 2 sec. No: Murmur Present - Respiratory Respiratory: Clear to ausultation cathie. No: Distress, Labored - Abdomen Abdomen: Normal Bowel sounds. No: Tender to palpation - Back Back: Vertebral tenderness, Soft tissue tenderness (Midline lower thoracic tenderness without crepitus ecchymosis or stepoff. Lower lumbar midline tenderness again without step-off or ecchymosis.) - Derm Derm: Normal color, Warm and dry. No: Abrasion (s) - Extremities Extremities: Normal. No: Deformity - Neuro Neuro: Alert and Oriented X 3, CNII-XII intact, Other (No saddle anesthesia. Normal rectal tone. Motor strength 5 of 5 bilateral lower extremities.) - GCS Eye Opening: Spontaneous Motor: Obeys Commands Verbal: Oriented Total: 15 Results - Vitals Vitals: Vital Signs - 24 hr 07/21/21 07/21/21 14:40 16:46 Temperature 36.1 C L 37.5 C Heart Rate 51 L 89 Respiratory 16 18 Rate Blood Pressure 156/87 H 150/90 H O2 Saturation 99 99 Oxygen O2 Source Room air - Rads (name of study) CT thoracic Radiology: Final report received (Mild T12 compression fracture. Moderate sized lateral hernia) CT lumbar Radiology: Final report received (Mild T12 compression fracture) PD MEDICAL DECISION MAKING - ED course Complexity details: reviewed results, re-evaluated patient, considered differential, d/w patient ED course: 80-year-old male presents the emergency department after a fall from a ladder. He was on the third rung of the ladder when it slipped from underneath him and he fell directly on his buttock. He did not strike his head or lose consciousness. He is not anticoagulated. He reports low back pain. He has no saddle anesthesia paresthesias or loss of motor strength in lower extremities and has been ambulatory since the fall. On exam there was some midline lower thoracic tenderness as well as midline lumbar tenderness. Subsequent CT imaging of both the thoracic and lumbar spine demonstrates a mild T12 compression fracture only. Patient was given oxycodone here in the emergency department with good relief of pain symptoms and able to walk easily with a walker. Patient declines a walker from the emergency department. I discussed that over the next few weeks walking with one may be important as his back hurts and puts him at increased risk of falls. He tells this provider he will get a walker through the [employer] [facility]. Prescription for oxycodone and MiraLAX will be sent to [facility]. Recommend close follow-up with his primary care provider. Emergent return precautions otherwise discussed. I am prescribing a short course of short-acting opioid pain medication for this patient. I have reviewed the patients CONTINUOUS IMPROVEMENT COORDINATOR and no concerning findings were noted. I have discussed that the opioids are for short term therapy only, and will not be refilled from the ED. Departure - Departure Disposition: Home, Self Care Clinical Impression: Fall from ladder Qualifiers: Encounter type: initial encounter Qualified Code(s): W11.XXXA - Fall on and from ladder, initial encounter T12 compression fracture Qualifiers: Encounter type: initial encounter Qualified Code(s): S22.080A - Wedge compression fracture of T11-T12 vertebra, initial encounter for closed fracture Condition: Stable Record reviewed to determine appropriate education?: Yes Instructions: ED Fx Comp Vertebral Follow-Up: Oral Lockett MD [Primary Care Provider] - Prescriptions: polyethylene glycoL 3350 [Miralax] 17 gm PO DAILY PRN #1 bottle PRN Reason: Constipation oxyCODONE [Roxicodone] 5 mg PO TID PRN #20 tablet PRN Reason: Pain Comments: Mina you were seen today in the emergency department after you fell from the ladder landing directly on your buttock. You reported that you had low back pain. We did do CT imaging of your spine and do find a mild T12 compression fracture. This fracture does not put you at risk for spinal cord injury. As this is an isolated compression fracture it is likely it will simply be allowed to heal with time though it is going to be painful and uncomfortable. I recommend Tylenol or ibuprofen for pain but for severe pain you can take the oxycodone. Oxycodone will make you constipated so when taking it please make sure you take MiraLAX and have a bowel movement every day. Please follow-up with Dr. Lockett to discuss this ED visit. In some cases compression fractures are treated with a procedure called kyphoplasty though you may not be a candidate as this is an isolated single vertebrae. Because of back pain you will be at increased risk for falls. I do highly recommend that you walk with a walker for the next few weeks. We offered you 1 today through the emergency department but you will prefer to get it through the [employer] [facility] which I think is an okay alternative If at any point you develop fevers, lose control of your bowel or bladder func tion, have sudden weakness in your legs then please return immediately to the ER for a second evaluation Your prescriptions have been sent to the [facility] pharmacy in [place]
--- NOTE | 2021-07-21 17:28 | CT Report ---
PROCEDURE: THORACIC SPINE WO INDICATIONS: Fall off ladder 3-5 feet directly onto buttock TECHNIQUE: Noncontrast 3 mm thick sections acquired through the region of interest in the thoracic spine. Sagit tanja and coronal reformats were then constructed. For radiation dose reduction, the following was used : automated exposure control, adjustment of mA and/or kV according to patient size. COMPARISON: CT lumbar spine performed today, 11/01/2016. Abdominal ultrasound 09/12/2017. FINDINGS: Image quality: Excellent. Bones: Mild T12 compression fracture, (8/55), new compared to 2017. Mild scoliosis. No suspicious s clerotic or lytic bony lesions. Central spinal canal is of normal overall caliber. Soft tissues: No paravertebral masses or hematomas. Coronary artery calcifications. Hypodensity in t he liver is likely a cyst. Moderate-sized hiatal hernia. Visualized posteromedial lungs appear clear. IMPRESSION: 1. Mild T12 compression fracture. 2. Moderate-sized lateral hernia Reviewed by: Sam Prakash MD on 07/21/2021 4:26 PM [place] Approved by: Sam Prakash MD on 07/21/2021 4:26 PM [place] Station ID: [id number]
--- NOTE | 2021-07-21 17:30 | CT Report ---
PROCEDURE: LUMBAR SPINE WO INDICATIONS: fall off ladder 3-5 feet directly onto butt; + LBP TECHNIQUE: Noncontrast 3 mm thick sections acquired from the T12 level to the sacrum. Sagittal and coronal refo rmats were constructed. For radiation dose reduction, the following was used: automated exposure co ntrol, adjustment of mA and/or kV according to patient size. COMPARISON: Same day CT thoracic spine. CT lumbar spine 11/01/2016.. FINDINGS: Image quality: Excellent. Bones: Mild scoliosis. Mild T12 compression fracture, new. Moderate degenerative change. No suspiciou s lytic or blastic bony lesions. Central spinal caliber is of normal overall caliber. No pars defec ts. Soft tissues: No retroperitoneal masses or hematomas. Visualized aorta is normal in caliber. Modera te hiatal hernia. IMPRESSION: Mild T12 compression fracture. Reviewed by: Sam Prakash MD on 07/21/2021 4:29 PM [place] Approved by: Sam Prakash MD on 07/21/2021 4:29 PM [facility] Station ID: [id number]
[2021-07-21 18:13] VITALS: BP 129/76
[2021-07-21] MEDS ORDERED: oxyCODONE/ACET 5/325 Prepack 4 PO STA (18:29)
== END 2021-07-21 18:42 | disposition home or self-care (01) ==
LOC: ED 14:37
DX: S22.080A Wedge compression fracture of T11-T12 vertebra, initial encounter for closed fracture (principal); W11.XXXA Fall on and from ladder, initial encounter; I10 Essential (primary) hypertension; Z87.891 Personal history of nicotine dependence
CPT/HCPCS: 72128; 72131; 99282; 99284; A9270

== ENCOUNTER 2021-08-23 10:31 | Outpatient (CLI) | payer MEDICARE ==
--- NOTE | 2021-08-23 13:49 | XRAY Report ---
PROCEDURE: Thoracic Spine 2 View INDICATIONS: LOW BACK PAIN AFTER FALL TECHNIQUE: 3 views of the thoracic spine were acquired. COMPARISON: None. FINDINGS: Bones: No fractures or dislocations. No suspicious bony lesions. Visualized ribs are intact. Multil evel degenerative disc disease. Soft tissues: No paravertebral stripe thickening. IMPRESSION: Multilevel degenerative disc disease. No acute fracture. No osseous lesion. If symptoms and/or clinic al suspicion for pathology continue, further assessment with repeat plain films, or advanced imaging (e.g., CT, MRI, or bone scan) is recommended for further assessment. Reviewed by: Tone Johnson MD on 08/23/2021 1:48 PM PDT Approved by: Tone Johnson MD on 08/23/2021 1:48 PM PDT Station ID: [id number]
--- NOTE | 2021-08-23 14:09 | XRAY Report ---
PROCEDURE: Lumbar Spine 2 View INDICATIONS: LOW BACK PAIN AFTER FALL TECHNIQUE: 2 views of the lumbar spine were acquired. COMPARISON: 12/18/2015 plain films. FINDINGS: Bones: 5 [id number] vertebrae are present. There is mild, roughly 7 mm of retrolisthesis of L1 on L2. Mild, roughly 5 mm retrolisthesis of L2 on L3. Moderate wedging of T12, new since the prior examinati on, of uncertain acuity. Multilevel disc space narrowing and endplate osteophyte formation. Facet hyp ertrophy throughout the mid and lower lumbar spine. No vertebral body compression fractures. No susp icious bony lesions. Soft tissues: Overlying bowel gas pattern is normal. No suspicious soft tissue calcifications. IMPRESSION: 1. Moderate T12 compression fracture of uncertain acuity. Initial further assessment with MRI is ming mmended. 2. Multilevel degenerative disc and facet disease. Reviewed by: Tone Johnson MD on 08/23/2021 2:08 PM PDT Approved by: Tone Johnson MD on 08/23/2021 2:08 PM PDT Station ID: [id number]
== END 2021-08-23 10:32 | disposition home or self-care (01) ==
LOC: DI 10:31
PROVIDERS: ATTEND Student in an Organized Health Care Education/Training Program
DX: M51.34 Other intervertebral disc degeneration, thoracic region (principal); M48.54XA Collapsed vertebra, not elsewhere classified, thoracic region, initial encounter for fracture; M43.16 Spondylolisthesis, lumbar region; M47.816 Spondylosis without myelopathy or radiculopathy, lumbar region; M51.36 Other intervertebral disc degeneration, lumbar region

== ENCOUNTER 2021-08-27 12:13 | Outpatient (CLI) | payer MEDICARE ==
--- NOTE | 2021-08-27 13:06 | CT Report ---
PROCEDURE: HEAD WO INDICATIONS: WORSENING SHORT TERM MEMORY AFTER FALL TECHNIQUE: Noncontrast 4.5 mm thick angled axial sections acquired from the foramen magnum to the vertex. For r adiation dose reduction, the following was used: automated exposure control, adjustment of mA and/or kV according to patient size. COMPARISON: 09/19/2018 FINDINGS: Image quality: Excellent. CSF spaces: Basal cisterns are patent. No extra-axial fluid collections. Ventricles are normal in size and shape. Brain: No midline shift. No intracranial masses or hemorrhage. Diaz-white matter interface is norm al. Skull and face: Calvarium and visualized facial bones are intact, without suspicious lesions. Sinuses: Moderate mucosal thickening is seen involving the maxillary sinuses, right worse than left. There is thickening of the stevens of the maxillary sinuses. The sinuses otherwise are relatively mandeep r. No significant abnormal fluid can be seen within the mastoid air cells. IMPRESSION: No intracranial hemorrhage is seen. No significant intracranial abnormality is seen. Significant maxillary sinus disease is seen, with a chronic appearance. Reviewed by: Maicol Darby MD on 08/27/2021 12:05 PM AVELINO Approved by: Maicol Darby MD on 08/27/2021 12:05 PM AVELINO Station ID: [id number]
== END 2021-08-27 12:14 | disposition home or self-care (01) ==
LOC: DI 12:13
PROVIDERS: ATTEND Physician Assistant
DX: J32.0 Chronic maxillary sinusitis (principal); R41.3 Other amnesia

== ENCOUNTER 2021-08-31 14:51 | Outpatient (CLI) | payer MEDICARE ==
--- NOTE | 2021-08-31 16:08 | CT Report ---
PROCEDURE: THORACIC SPINE WO INDICATIONS: COMPRESSION FX OF T12 TECHNIQUE: Noncontrast 3 mm thick sections acquired through the region of interest in the thoracic spine. Sagit tanja and coronal reformats were then constructed. For radiation dose reduction, the following was used : automated exposure control, adjustment of mA and/or kV according to patient size. COMPARISON: 07/21/2021 FINDINGS: Image quality: Excellent. Bones: There is again seen a T12 level fracture. This fracture demonstrates 40-50% loss of height ant eriorly. When compared to the 07/21/2021 examination, the fracture as progressed. There is 3 to 4 mm p osterior displacement of fracture fragment seen superiorly. Mild levoconvex scoliotic curvature is seen. No suspicious sclerotic or lytic bony lesions. Lower cervical spine degenerative changes can be seen. Generalized degenerative changes can be seen t hroughout the thoracic spine. Soft tissues: No paravertebral masses or hematomas. Visualized posteromedial lungs appear clear. A moderately sized hiatal hernia is seen. At least moderate coronary artery calcification is seen. IMPRESSION: T12 fracture again seen. This fracture has progressed in severity compared to the prior examination, now with 40-50% loss of height anteriorly. Posterior displacement of fracture fragments can be seen a long the superior aspect of the T12 vertebral body, measuring 3-4 mm. Incidental note is made of: At least moderate coronary artery calcification Levoconvex scoliotic curvature. Moderately sized hiatal hernia. Reviewed by: Maicol Darby MD on 08/31/2021 3:07 PM AVELINO Approved by: Maicol Darby MD on 08/31/2021 3:07 PM NYREMI Station ID: [id number]
== END 2021-08-31 14:52 | disposition home or self-care (01) ==
LOC: DI 14:51
PROVIDERS: ATTEND Student in an Organized Health Care Education/Training Program
DX: S22.089A Unspecified fracture of T11-T12 vertebra, initial encounter for closed fracture (principal)

== ENCOUNTER 2022-05-28 08:06 | Outpatient (CLI) | payer MEDICARE ==
--- NOTE | 2022-05-28 17:32 | XRAY Report ---
PROCEDURE: Chest 2 View X-Ray INDICATIONS: WHEEZING/COUGH TECHNIQUE: 2 views of the chest were acquired. COMPARISON: 05/20/2018 FINDINGS: Surgical changes and devices: None. Lungs and pleura: No pleural effusions or pneumothorax. Lungs are clear. Mediastinum: Mildly tortuous thoracic aorta is seen. Heart size is normal. Bones and chest wall: No suspicious bony abnormalities. Soft tissues appear unremarkable. IMPRESSION: No acute cardiopulmonary pathology. Reviewed by: Rachid Rizo MD on 05/28/2022 5:30 PM PST Approved by: Rachid Rizo MD on 05/28/2022 5:30 PM PST Station ID: [id number]
== END 2022-05-28 08:07 | disposition home or self-care (01) ==
LOC: DI 08:06
PROVIDERS: ATTEND Physician Assistant
DX: R06.2 Wheezing (principal); R05.9 Cough, unspecified

== ENCOUNTER 2022-08-14 10:40 | Outpatient (CLI) | payer MEDICARE ==
--- NOTE | 2022-08-14 11:06 | XRAY Report ---
PROCEDURE: Hip w/Pelvis 2-3V RT INDICATIONS: Trochanteric Bursitis TECHNIQUE: AP pelvis with lateral view(s) of the right hip(s). COMPARISON: X-ray 02/21/2015. FINDINGS: Bones: No fractures or dislocations. Pelvic ring appears intact. No suspicious bony lesions. Ther e is severe degenerative narrowing of the right hip with areas of subchondral sclerosis and periartic ular lucencies. This is markedly progressive compared to 2014. Periarticular osteophytes are present. Mild to moderate changes are noted on the left. Degenerative changes are present within the lower mina mbar spine. Soft tissues: The visualized bowel gas pattern is normal. No suspicious soft tissue calcifications. IMPRESSION: This is a normal study. Severe right hip and mild to moderate left hip arthritis. Reviewed by: Cinthia Ernandez MD on 08/14/2022 11:05 AM PDT Approved by: Cinthia Ernandez MD on 08/14/2022 11:05 AM PDT Station ID: [id number]
== END 2022-08-14 10:41 | disposition home or self-care (01) ==
LOC: DI 10:40
PROVIDERS: ATTEND Internal Medicine
DX: M70.61 Trochanteric bursitis, right hip (principal); M16.0 Bilateral primary osteoarthritis of hip

== ENCOUNTER 2022-09-13 10:21 | Outpatient (CLI) | payer MEDICARE ==
--- NOTE | 2022-09-13 11:25 | Sleep Patient Instructions ---
Sleep Center Visit Summary - Patient Visit Information Reason for Visit: Initial consult for evaluation for changes of your sleep disordered breathing or sleep apnea. - Patient Instructions Additional Instructions: You will be completing a sleep study, either an in-lab polysomnography (PSG) or home sleep study (HST). You will follow-up in the sleep care office after the sleep study is completed to hear the results and talk about therapy, if needed. You will be called by our office staff to schedule this appointment, but you may contact us with any questions. - Clinic Information Contact: [facility] [address] [place] [id number] [email or web address] T: [phone]
[2022-09-13 11:28] VITALS: BP 122/64
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
== END 2022-09-13 10:22 | disposition home or self-care (01) ==
LOC: SC 10:21
PROVIDERS: ATTEND Nurse Practitioner Family
DX: G47.33 Obstructive sleep apnea (adult) (pediatric) (principal); E66.9 Obesity, unspecified; Z68.31 Body mass index [BMI] 31.0-31.9, adult
CPT/HCPCS: 99203; G0463; 99212

== ENCOUNTER 2022-09-24 19:38 | Outpatient (CLI) | payer MEDICARE | END 2022-09-24 19:39 | disposition home or self-care (01) | LOC: SC 19:38 | PROVIDERS: ATTEND Nurse Practitioner Family | DX: G47.61 Periodic limb movement disorder (principal) | CPT/HCPCS: 95810 ==

== ENCOUNTER 2023-07-31 16:39 | Emergency (ER) | payer MEDICARE ==
--- NOTE | 2023-07-31 17:24 | ED Physician Documentation ---
PD HPI LOWER EXT INJURY - Stated complaint Stated Complaint: L HIP PX - Chief complaint Chief Complaint: Ext Problem - History obtained from History obtained from: Patient - Additional information Additional information: 82-year-old gentleman had left hip pain for the month. Worsened after gardening 2 days ago. Taking Tylenol without relief. Is worse when he lifts his leg or bears weight on it. There is no specific injury. PD PAST MEDICAL HISTORY - Past Medical History Cardiovascular: Hypertension Respiratory: Sleep apnea Neuro: None Endocrine/Autoimmune: HyPOthyroidism GI: GERD : Benign prostate hypertrophy HEENT: Chronic hearing loss Psych: None Musculoskeletal: Osteoarthritis Derm: None - Past Surgical History Past Surgical History: Yes General: Appendectomy, Other HEENT: Other - Present Medications Home Medications: Ambulatory Orders Medication Instructions Recorded Confirmed Citalopram [CeleXA] See Rx Instructions .ROUTE .COMPLEX 09/13/22 09/13/22 Diazepam [Valium] See Rx Instructions .ROUTE .COMPLEX 09/13/22 09/13/22 Felodipine [Felodipine ER] See Rx Instructions .ROUTE .COMPLEX 09/13/22 09/13/22 Levothyroxine [Synthroid] See Rx Instructions .ROUTE .COMPLEX 09/13/22 09/13/22 Losartan [Cozaar] See Rx Instructions .ROUTE .COMPLEX 09/13/22 09/13/22 Methadone [Methadone Hcl] See Rx Instructions .ROUTE .COMPLEX 09/13/22 09/13/22 Omeprazole See Rx Instructions .ROUTE .COMPLEX 09/13/22 09/13/22 Sildenafil Citrate [Sildenafil] See Rx Instructions .ROUTE .COMPLEX 09/13/22 09/13/22 rOPINIRole [Requip] See Rx Instructions .ROUTE .COMPLEX 09/13/22 09/13/22 Celecoxib [CeleBREX] 200 mg PO DAILY #14 07/31/23 - Allergies Allergies/Adverse Reactions: Allergies Allergy/AdvReac Type Severity Reaction Status Date / Time lisinopril AdvReac Cough Verified 07/31/23 16:54 naproxen AdvReac GI Upset Verified 07/31/23 16:54 - Social History Does the pt smoke?: Yes Smoking Status: Former smoker Does the pt drink ETOH?: Yes Does the pt have substance abuse?: No - Immunizations Immunizations are current?: Yes - POLST Patient has POLST: No POLST Status: Full Code PD ED PE NORMAL - Vitals Vital signs reviewed: Yes - General General: Alert and oriented X 3, No acute distress - Derm Derm: Normal color, Warm and dry - Extremities Extremities: Other (Mild tenderness over the greater "trochanter of the left hip. No shingles rash. Internal/external rotation is painless. No pain with palpation of the pelvis or knee.) - Neuro Neuro: Alert and oriented X 3, Normal speech Results - Vitals Vitals: Vital Signs - 24 hr 07/31/23 07/31/23 16:48 17:37 Temperature 36.4 C L 36.7 C Heart Rate 49 L 66 Respiratory 17 18 Rate Blood Pressure 125/66 131/69 H O2 Saturation 96 100 Oxygen O2 Source Room air - Rads (name of study) X-ray of the left hip demonstrate right greater than left hip osteoarthritis bilaterally. Relevant Findings:: Final report received, EMP independent interpretation of test PD Medical Decision Making - ED course ED course: He presents with left hip pain. Examination is pretty unimpressive without signs of infection. X-ray demonstrating modest osteoarthritis in both hips, the right actually is worse than the left. Departure - Departure Disposition: 01 Home, Self Care Clinical Impression: Hip osteoarthritis Qualifiers: Osteoarthritis type: primary Laterality: left Qualified Code(s): M16.12 - Unilateral primary osteoarthritis, left hip Condition: Good Record reviewed to determine appropriate education?: Yes Instructions: Hip Osteoarthritis Prescriptions: Celecoxib [CeleBREX] 200 mg PO DAILY #14 Comments: Since you do not tolerate Aleve I am prescribing Celebrex to be used short-term for the osteoarthritic pain in your hip. Follow-up with your doctor for consideration for orthopedic referral. Return for new or worsening symptoms. Forms: PCP List Discharge Date/Time: 07/31/23 17:37
--- NOTE | 2023-07-31 17:41 | XRAY Report ---
PROCEDURE: Hip w/Pelvis 2-3V LT INDICATIONS: hip pain TECHNIQUE: 2 views of the hip were acquired. COMPARISON: None. FINDINGS: Bones: No fractures or dislocations. No suspicious bony lesions. Moderate right and mild left hip osteoarthritis. Soft tissues: No suspicious soft tissue calcifications or masses. IMPRESSION: No acute bony abnormality. If there remains a high clinical concern for fracture, including inability to bear weight, consider cross-sectional imaging to exclude an occult fracture. Reviewed by: Toan Templeton MD on 07/31/2023 5:40 PM PDT Approved by: Toan Templeton MD on 07/31/2023 5:40 PM PDT Station ID: [id number]
[2023-07-31 17:46] VITALS: BP 131/69; O2SAT 100
== END 2023-07-31 17:37 | disposition home or self-care (01) ==
LOC: ED 16:39
DX: M16.12 Unilateral primary osteoarthritis, left hip (principal); I10 Essential (primary) hypertension; E03.9 Hypothyroidism, unspecified; N40.0 Benign prostatic hyperplasia without lower urinary tract symptoms; G47.30 Sleep apnea, unspecified; Z79.899 Other long term (current) drug therapy
CPT/HCPCS: 99283; 99284